=== PATIENT | male | born 1940 | race African-American/Black ===

== ENCOUNTER → 2020-03-17 | Outpatient (CLI) | payer MEDICARE, BC | LOC: M.MRI 17:09 | DX: R60.0 Localized edema (principal) ==

== ENCOUNTER → 2020-03-30 | Outpatient (CLI) | payer MEDICARE, BC ==
[2020-03-31 02:08] LABS: GLYCOHEMOGLOBIN (HGB A1C) 6.8 % (4.8-5.6)
== END ==
LOC: M.LAB 10:06
PROVIDERS: Orthopaedic Surgery
DX: N63.10 Unspecified lump in the right breast, unspecified quadrant (principal); K50.90 Crohn's disease, unspecified, without complications

== ENCOUNTER → 2020-04-12 | Day surgery (SDC) | payer MEDICARE, BC ==
[~2020-04-12] MED LIST: AMLODIPINE BESY10 MG PO; ATORVASTATIN CA20 MG PO; LEVEMIR FL100 UNIT/2 SUBQ; MELOXICAM15 MG PO; METFORMIN HCL500 M3 PO; PERCOCET 5-3251 EACH PO; SERTRALINE HCL100 MG PO; TOPROL XL50 MG PO; TRAMADOL 50 MG50 MG PO; VALSARTAN-HCTZ1 EAC2 PO
--- NOTE | 2020-04-12 12:33 | EKG ---
[place] [address] ELECTROCARDIOGRAM REPORT Name: JEFFRY DICKSON Room: [facility]#: [id number] Admission: 04/12/20 Attend Phys: Elvis White DO Discharge: Date of : 44 Date of Service: 04/12/20909 Report #: [id number] THIS REPORT FOR: //name// [facility] Test Date: 2020-04-12 Test Time: 09:10:55 Pat Name: JEFFRY DICKSON Department: Room: Gender: Cafe Helper: Davin RAMIRES RN : 1940 Requested By: Lj Allison Order Number: [id number] Devyn MD: Chau Hays Measurements Intervals [place] Rate: 57 P: 7 MO: 246 QRS: -10 QRSD: 110 T: 24 QT: 435 QTc: 424 Interpretive Statements Sinus rhythm Prolonged MO interval Left ventricular hypertrophy Baseline wander in lead(s) V6 No previous ECG available for comparison Electronically Signed On 04-12-2020 12:32:21 CDT by Chau Hays [email or web address] <ELECTRONICALLY SIGNED> By: Chau Hays MD, [facility] 04/12/20 1232 0910 0910 Chau Hays MD, [facility] /EPI
--- NOTE | 2020-04-13 06:45 | OP ---
[address] [address] OPERATIVE REPORT Name: JEFFRY DICKSON Room: [facility].#: [id number] Admission: 04/12/20 Attend Phys: Elvis White DO Discharge: Date of : 44 Report #: [id number] THIS REPORT FOR: //name// cc: Rylie Delacruz MD, Stany A. MD ~ THIS REPORT FOR: //name// CC: Elvis Delacruz DATE OF SERVICE: 04/12/2020 PREOPERATIVE DIAGNOSIS: Longitudinal rotator cuff tear of the left shoulder supraspinatus, 4 cm in length. POSTOPERATIVE DIAGNOSIS: Longitudinal rotator cuff tear of the left shoulder supraspinatus, 4 cm in length. SURGERY PERFORMED: Open left rotator cuff repair as well as acromioplasty. SURGEON: Elvis White DO BREAKER HAND: Ronald Ramos DO ANESTHESIA: General anesthetic and a block. ANTIBIOTICS: The patient did receive Ancef 2 grams IV piggyback preoperatively. Has no specimens, complications or drains. ESTIMATED BLOOD LOSS: Minimal. GROSS FINDINGS: MRI correlated rotator cuff tear intraoperatively, the 4 cm tear was noted as stated above. It was longitudinal in nature, significant fraying across the entire large complex of the cuff from having this tear. He had a hooked acromion anteriorly. Post repair, a very stable repair of the rotator cuff was noted. SURGERY IN DETAIL: This gentleman was taken to the operating room and placed on table, given the benefit of general anesthetic, placed in a beach chair position and underwent a chlorhexidine prep and sterile draping for his left shoulder. The patient did have a timeout called and verified by everyone in the room for the left shoulder. Surgery began at this point in time, starting at the AC joint, extending laterally and over the deltoid with a 10 blade scalpel through skin and subcutaneous tissues. Subcutaneous layers were elevated off the deltoid and then just from the anterior edge of the acromion, [place] [address] OPERATIVE REPORT Name: JEFFRY DICKSON Room: [facility]#: [id number] Admission: 04/12/20 Attend Phys: Elvis White DO Discharge: Date of : 44 Report #: [id number] fascia and deltoid was split, reflected off the anterior edge and the cuff tear was easily visualized. All the edges of the cuff tear were sharpened with a 15 blade scalpel, copiously irrigated with normal saline. Acromioplasty was performed next with a rongeur technique. I did initially start a running closed suture with a 2-0 FiberWire in [id number] fashion ended up from medially to laterally and then on the lateral most stitches, I anchored it down with SwiveLock. The patient's cup was placed through arc of motion, very stable. Surgery also continued at this point in time now with irrigation prior to closure. Four FiberWire sutures placed through the acromion and the deltoid proximally and medially and sutured back to the deltoid. It was reinserted easily in the deltoid. The deltoid was closed with #1 Vicryl followed with 2-0 Monocryl to subcutaneous tissue and then a running 3-0 nylon to the skin with sterile 4 x 4 compression dressing. He was transferred off the table, taken to recovery in stable condition. I attest I was present for the entire surgery. Needle, instrument, sponge counts correct. <ELECTRONICALLY SIGNED> By: Elvis White DO 04/13/20 0645 1105 1144Cdorothea White DO /nt
== END | disposition home or self-care (01) ==
LOC: M.LAB 05:45 → M.SUR 08:13 → M.LAB 10:11 → M.SUR 13:31 → M.LAB 14:00
PROVIDERS: ATTEND Orthopaedic Surgery
DX: M75.122 Complete rotator cuff tear or rupture of left shoulder, not specified as traumatic (principal); M25.512 Pain in left shoulder; I10 Essential (primary) hypertension; E11.9 Type 2 diabetes mellitus without complications; F32.9 Major depressive disorder, single episode, unspecified; F41.9 Anxiety disorder, unspecified; Z98.890 Other specified postprocedural states; Z79.899 Other long term (current) drug therapy; Z98.41 Cataract extraction status, right eye; Z98.42 Cataract extraction status, left eye; Z85.46 Personal history of malignant neoplasm of prostate; Z11.59 Encounter for screening for other viral diseases